=== PATIENT | male | born 1970 | race Hispanic/Latino ===

== ENCOUNTER 2017-02-15 06:44 | Day surgery (SDC) | payer BC ==
[2017-02-15 07:58] LABS: Hematocrit 45.6 % (35.5-45.6); Hemoglobin 15.6 gm/dl (11.8-15.2); Mean Corpuscular HGB Conc 34 % (32-34); Mean Corpuscular Hemoglobin 31 pg (28-32); Mean Corpuscular Volume 90 fl (84-94); Platelet Count 203 K/mm3 (140-440); Red Blood Count 5.06 M/mm3 (3.65-5.03); Red Cell Distribution Width 14.8 % (13.2-15.2); White Blood Count 11.5 K/mm3 (4.5-11.0)
[2017-02-15 08:09] LABS: INR 0.83 (0.87-1.13)
[2017-02-15 08:10] LABS: Partial Thromboplastin Time 24.9 Sec. (24.2-36.6)
[2017-02-15 09:00] LABS: Basophils % (Manual) 0 % (0.0-1.8); Blastocytes % (Manual) 0 %; Diff Status Complete; Eosinophils % (Manual) 0 % (0.0-4.3); RBC Morphology Normal
[2017-02-15] MEDS ORDERED: VERSED IV ONE ×2 (09:23→10:30)
[2017-02-15] MEDS ORDERED: SUBLIMAZE ONE (09:23)
--- NOTE | 2017-02-15 10:29 | Short Stay Summary ---
Short Stay Documentation Date of service: 02/15/17 - History Principal diagnosis: Lymphadenopathy - Allergies and Medications Current Medications: Allergies No Known Allergies Allergy (Verified 02/15/17 07:29) Home Medications Medication Instructions Recorded Confirmed Last Taken Type ALPRAZolam [Xanax TAB] 0.25 mg PO BID PRN 02/15/17 02/15/17 02/15/17 History Aspirin [Aspirin TAB] 325 mg PO QDAY 02/15/17 02/15/17 1 Week Ago History Propranolol [Inderal] 10 mg PO BID 02/15/17 02/15/17 02/15/17 History Sildenafil Citrate [Sildenafil] 20 mg PO QDAY 02/15/17 02/15/17 02/03/17 History predniSONE [Deltasone] 20 mg PO BID PRN 02/15/17 02/15/17 02/14/17 History Active Medications Fentanyl (Sublimaze) 100 mcg IV ONCE ONE Stop: 02/15/17 10:31 Last Admin: 02/15/17 09:51 Dose: 100 mcg Midazolam HCl (Versed) 5 mg IV ONCE ONE Stop: 02/15/17 10:31 Last Admin: 02/15/17 09:51 Dose: 5 mg - Physical exam General appearance: no acute distress - Brief post op/procedure progress note Date of procedure: 02/15/17 Pre-op diagnosis: Neck masses Post-op diagnosis: same Procedure: Bx neck mass Anesthesia: local Surgeon: NICOLA ROOT Estimated blood loss: none Specimen disposition: to lab Condition: stable - Disposition Condition at discharge: Good Disposition: [id number] TO HOME OR SELFCARE Short Stay Discharge Plan Follow up with: MARY HUI MD [Primary Care Provider] - 7 Days
[2017-02-15] MEDS ORDERED: SUBLIMAZE IV ONE (10:30)
--- NOTE | 2017-02-15 11:09 | Cat Scan Report ---
CT guided biopsy of right neck mass. History: Palpable mass. Procedure: The patient's skin surface overlying the right neck was prepped and draped using sterile technique. Local anesthetic was injected into the skin. Using CT guidance, an 18-gauge biopsy gun was introduced, and 2 tissue cores were obtained. Initial touch prep slides demonstrated abnormal lymphocytes and the procedure was terminated. The patient tolerated the procedure well clinically. Intravenous conscious sedation was utilized. Intraservice time is 15 minutes. Independent cardiorespiratory monitoring was performed by the outpatient procedure nurse for 15 minutes, supervised by me. The Patient was sent to the outpatient procedure unit for further short term observation.
[2017-02-15 15:52] VITALS: BP 109/70
[2017-02-28 10:25] LABS: CYTOMETRY FIRST MARKER SCANNED INTO MED REC; FLOW CYTOMETRY >16 SCANNED INTO MED REC
== END 2017-02-15 12:10 | disposition home or self-care (01) ==
LOC: OPU 06:44 → EDSTATUS 08:30 → OPU 12:10
PROVIDERS: ATTEND Internal Medicine Hematology
DX: C81.71 Other Hodgkin lymphoma, lymph nodes of head, face, and neck (principal)
CPT/HCPCS: 36415; 38505; 77012; 85007; 85025; 85610; 85730; 88184; 88185; 88305; 88333; 88341; 88342; J2250; J3010; Q9967